=== PATIENT | female | born 1945 | race Caucasian/White ===

== ENCOUNTER 2022-09-26 10:40 | Inpatient (IN) | payer OTHER, MEDICAID ==
[~2022-09-26] VITALS: Ht 152.4 cm; Wt 59.4 kg
[2022-09-26 11:36] VITALS: BP_SYST 102; PULSE 69; RESP 16; TEMP 97.8; O2SAT 98
[2022-09-26] MEDS ORDERED: NACL 0.9% 1,000 ML IV ONE (11:45)
[2022-09-26 12:25] LABS: BASOPHILS % (AUTO) 0.4 % (0.0-2.0); EOSINOPHILS # (AUTO) 0.1 K/uL (0.0-0.4); EOSINOPHILS % (AUTO) 0.4 % (0.0-4.0); HEMOGLOBIN 12.2 g/dL (12.0-16.0); LYMPHOCYTES # (AUTO) 1.9 K/uL (1.0-5.5); LYMPHOCYTES % (AUTO) 13.9 % (20.5-51.5); MEAN CORPUSCULAR HEMOGLOBIN 29 pg (27-31); MEAN CORPUSCULAR HGB CONC 33 % (32-36); MEAN CORPUSCULAR VOLUME 87 fL (79.0-98.0); MONOCYTES % (AUTO) 7.4 % (1.7-9.3); NEUTROPHILS # (AUTO) 10.8 K/uL (1.8-7.7); NEUTROPHILS % (AUTO) 77.9 % (40.0-70.0); PLATELET COUNT (AUTO) 256 K/uL (130-430); RED BLOOD CELL COUNT(AUTO) 4.25 MIL/uL (4.2-6.2); RED CELL DISTRIBUTION WIDTH 13.3 % (9.0-15.0); WHITE BLOOD COUNT (AUTO) 13.8 K/uL (4.8-10.8)
[2022-09-26 12:28] LABS: ANION GAP 6 (5-15); CALCIUM 7.4 mg/dL (8.4-11.0); CHLORIDE 103 mmol/L (98-107); CREATININE 0.77 mg/dL (0.55-1.30); GLUCOSE 104 mg/dL (74-106); UREA NITROGEN, BLOOD 15 mg/dL (8-21)
[2022-09-26 12:41] LABS: ALANINE AMINOTRANSFERASE 17 U/L (12-78); ALBUMIN 2.6 g/dL (3.4-4.8); ASPARTATE AMINOTRANSFERASE 16 U/L (10-37); FREE T4 (FREE THYROXINE) 1.4 ng/dL (0.6-1.6); THYROID STIMULATING HORMONE 0.59 uIu/mL (0.34-4.82); TOTAL BILIRUBIN 0.8 mg/dL (0.0-1.0)
[2022-09-26 12:58] LABS: ACETONE, SERUM NEGATIVE (NEGATIVE)
[2022-09-26 13:10] LABS: BILIRUBIN,URINE NEGATIVE (NEGATIVE); BLOOD, URINE NEGATIVE (NEGATIVE); CLARITY/URINE SL CLOUDY (CLEAR); COLOR,URINE YELLOW (YELLOW); GLUCOSE,URINE NEGATIVE (NEGATIVE); KETONES,URINE TRACE (NEGATIVE); LEUKOCYTE ESTERASE ,URINE TRACE (NEGATIVE); NITRITE, URINE NEGATIVE (NEGATIVE); PROTEIN URINE NEGATIVE (NEGATIVE); UROBILINOGEN,URINE 0.2 (0.2-1.0)
[2022-09-26 14:43] LABS: BACTERIA,URINE RARE /HPF (None Seen); MUCUS,URINE None Seen /LPF (None Seen); RBC,URINE NONE SEEN /HPF (0-3); WBC,URINE 0-3 /HPF (0-3)
[2022-09-26] MEDS ORDERED: CETI10CA20 PO (15:53)
[2022-09-26] MEDS ORDERED: ALBMDI INH (15:53)
[2022-09-26] MEDS ORDERED: LORA10TA7 PO (15:53)
[2022-09-26] MEDS ORDERED: ONDA-8 TL (15:53)
[2022-09-26] MEDS ORDERED: CEPH250C PO (15:53)
[2022-09-26] MEDS ORDERED: MONT-40 PO (15:53)
[2022-09-26] MEDS ORDERED: AMLO5TAB4 PO (15:53)
[2022-09-26] MEDS ORDERED: ACETAMINOPHEN 325 MG TABLET PO PRN (16:30)
[2022-09-26] MEDS ORDERED: D5LR 500 ML IV SCH (16:30)
[2022-09-26] MEDS ORDERED: IPRATROPIUM/ALBUTEROL SULFATE 3 ML AMPUL.NEB (DUONEB) IH PRN (16:30)
[2022-09-26 16:35] VITALS: PULSE 70; O2SAT 98
[2022-09-26] MEDS: IPRATROPIUM/ALBUTEROL SULFATE 3 ML AMPUL.NEB (DUONEB) INH SCH (18:00)
[2022-09-26 21:44] LABS: INR 1.1 (0.8-1.2); PROTHROMBIN TIME 11.4 SECS (9.5-12.5)
[2022-09-26] MEDS ORDERED: PANTOPRAZOLE SODIUM 40 MG/VIAL (PROTONIX) IVP ONE (21:45)
[2022-09-26] MEDS: METHYLPREDNISOLONE SOD SUCC 40 MG/ML VIAL IVP SCH (22:27)
[2022-09-26] MEDS ORDERED: METHYLPREDNISOLONE SOD SUCC 40 MG/ML VIAL ONE (22:28)
[2022-09-26 22:36] VITALS: BP_SYST 117; PULSE 73; RESP 18; TEMP 98.8; O2SAT 98
[2022-09-26 22:54] LABS: LIPASE 160 U/L (73-393)
[2022-09-26] MEDS ORDERED: PIPERACILLIN/TAZOBACTAM 3.375 GM/VIAL (ZOSYN) IV ONE (22:59)
[2022-09-26] MEDS: PIPERACILLIN/TAZO 3.375 GM in NS 50 ML IV SCH (23:14)
[2022-09-26 23:53] VITALS: BP_SYST 111; PULSE 62; RESP 18; TEMP 98; O2SAT 98
[2022-09-27] VITALS (9 sets, daily range): BP systolic 99–122; PULSE 70–84; RESP 14–18; TEMP 96.8–98.8; O2SAT 92–99
[2022-09-27] MEDS: ENOXAPARIN SODIUM 60 MG/0.6 ML SYRINGE SUBCUT SCH ×2 (00:42→08:18)
[2022-09-27] MEDS ORDERED: ENOXAPARIN SODIUM 60 MG/0.6 ML SYRINGE ONE (00:43)
[2022-09-27] MEDS: IPRATROPIUM/ALBUTEROL SULFATE 3 ML AMPUL.NEB (DUONEB) INH SCH ×4 (01:39→18:00)
[2022-09-27] MEDS: PIPERACILLIN/TAZO 3.375 GM in NS 50 ML IV SCH ×4 (05:09→23:15)
[2022-09-27 06:02] LABS: BASOPHILS % (AUTO) 0.1 % (0.0-2.0); EOSINOPHILS % (AUTO) 0.2 % (0.0-4.0); HEMATOCRIT 35.1 % (36-48); HEMOGLOBIN 11.6 g/dL (12.0-16.0); LYMPHOCYTES # (AUTO) 0.5 K/uL (1.0-5.5); LYMPHOCYTES % (AUTO) 4.1 % (20.5-51.5); MEAN CORPUSCULAR HEMOGLOBIN 29 pg (27-31); MEAN CORPUSCULAR HGB CONC 33 % (32-36); MEAN CORPUSCULAR VOLUME 87 fL (79.0-98.0); MONOCYTES # (AUTO) 0.2 K/uL (0.0-1.0); MONOCYTES % (AUTO) 1.3 % (1.7-9.3); NEUTROPHILS # (AUTO) 11.6 K/uL (1.8-7.7); NEUTROPHILS % (AUTO) 94.3 % (40.0-70.0); PLATELET COUNT (AUTO) 244 K/uL (130-430); RED BLOOD CELL COUNT(AUTO) 4.06 MIL/uL (4.2-6.2); RED CELL DISTRIBUTION WIDTH 13.1 % (9.0-15.0); WHITE BLOOD COUNT (AUTO) 12.3 K/uL (4.8-10.8)
[2022-09-27 06:26] LABS: ANION GAP 8 (5-15); CALCIUM 7.9 mg/dL (8.4-11.0); CHLORIDE 104 mmol/L (98-107); GLUCOSE 170 mg/dL (74-106); UREA NITROGEN, BLOOD 12 mg/dL (8-21)
[2022-09-27] MEDS: PANTOPRAZOLE SODIUM 40 MG/VIAL (PROTONIX) IVP SCH ×2 (08:16→20:38)
[2022-09-27] MEDS: METHYLPREDNISOLONE SOD SUCC 40 MG/ML VIAL IVP SCH (08:17)
[2022-09-27] MEDS: AZITHROMYCIN 500 MG in NS 250 ML IV SCH (08:18)
[2022-09-27] MEDS ORDERED: amLODIPine BESYLATE 5 MG TABLET PO SCH (09:00)
[2022-09-27] MEDS ORDERED: iohexoL 350 mgI/mL, 100 ML INFUS..BTL IV ONE (10:55)
[2022-09-27] MEDS: MONTELUKAST 10 MG TABLET PO SCH (18:38)
[2022-09-27] MEDS: APIXABAN 2.5 MG TABLET PO SCH (20:39)
[2022-09-28] VITALS (9 sets, daily range): BP systolic 112–132; PULSE 59–82; RESP 17–20; TEMP 96.8–97.3; O2SAT 93–99
[2022-09-28] MEDS: IPRATROPIUM/ALBUTEROL SULFATE 3 ML AMPUL.NEB (DUONEB) INH SCH ×3 (01:30→13:50)
[2022-09-28] MEDS: PIPERACILLIN/TAZO 3.375 GM in NS 50 ML IV SCH ×4 (05:20→23:51)
[2022-09-28] MEDS: AZITHROMYCIN 500 MG in NS 250 ML IV SCH (08:25)
[2022-09-28] MEDS: PANTOPRAZOLE SODIUM 40 MG/VIAL (PROTONIX) IVP SCH (08:26)
[2022-09-28] MEDS: APIXABAN 2.5 MG TABLET PO SCH ×2 (08:27→20:42)
[2022-09-28 12:49] LABS: BASOPHILS % (AUTO) 0.2 % (0.0-2.0); HEMATOCRIT 33.8 % (36-48); HEMOGLOBIN 11.2 g/dL (12.0-16.0); LYMPHOCYTES # (AUTO) 1.3 K/uL (1.0-5.5); LYMPHOCYTES % (AUTO) 7.6 % (20.5-51.5); MEAN CORPUSCULAR HEMOGLOBIN 29 pg (27-31); MEAN CORPUSCULAR HGB CONC 33 % (32-36); MEAN CORPUSCULAR VOLUME 87 fL (79.0-98.0); MONOCYTES # (AUTO) 0.8 K/uL (0.0-1.0); MONOCYTES % (AUTO) 4.8 % (1.7-9.3); NEUTROPHILS # (AUTO) 15.1 K/uL (1.8-7.7); NEUTROPHILS % (AUTO) 87.4 % (40.0-70.0); PLATELET COUNT (AUTO) 277 K/uL (130-430); RED BLOOD CELL COUNT(AUTO) 3.89 MIL/uL (4.2-6.2); RED CELL DISTRIBUTION WIDTH 13.4 % (9.0-15.0); WHITE BLOOD COUNT (AUTO) 17.3 K/uL (4.8-10.8)
[2022-09-28 13:18] LABS: ALANINE AMINOTRANSFERASE 8 U/L (12-78); ANION GAP 10 (5-15); ASPARTATE AMINOTRANSFERASE 13 U/L (10-37); CALCIUM 7.9 mg/dL (8.4-11.0); CHLORIDE 106 mmol/L (98-107); CREATININE 0.81 mg/dL (0.55-1.30); GLUCOSE 134 mg/dL (74-106); LIPASE 215 U/L (73-393); TOTAL BILIRUBIN 0.3 mg/dL (0.0-1.0); UREA NITROGEN, BLOOD 17 mg/dL (8-21)
[2022-09-28] MEDS ORDERED: guaiFENesin/DEXTROMETHORPHAN 10 ML UDC PO PRN (14:00)
[2022-09-28] MEDS ORDERED: POTASSIUM CHLORIDE 20 MEQ TAB.PRT.SR PO ONE (14:00)
[2022-09-28 16:25] LABS: BASOPHILS % (AUTO) 0.2 % (0.0-2.0); HEMATOCRIT 33.8 % (36-48); HEMOGLOBIN 10.9 g/dL (12.0-16.0); LYMPHOCYTES # (AUTO) 1.8 K/uL (1.0-5.5); LYMPHOCYTES % (AUTO) 10.7 % (20.5-51.5); MEAN CORPUSCULAR HEMOGLOBIN 28 pg (27-31); MEAN CORPUSCULAR HGB CONC 32 % (32-36); MEAN CORPUSCULAR VOLUME 87 fL (79.0-98.0); MONOCYTES # (AUTO) 0.9 K/uL (0.0-1.0); MONOCYTES % (AUTO) 5.3 % (1.7-9.3); NEUTROPHILS # (AUTO) 13.8 K/uL (1.8-7.7); NEUTROPHILS % (AUTO) 83.8 % (40.0-70.0); PLATELET COUNT (AUTO) 278 K/uL (130-430); RED BLOOD CELL COUNT(AUTO) 3.86 MIL/uL (4.2-6.2); RED CELL DISTRIBUTION WIDTH 13.2 % (9.0-15.0); WHITE BLOOD COUNT (AUTO) 16.4 K/uL (4.8-10.8)
[2022-09-28] MEDS: MONTELUKAST 10 MG TABLET PO SCH (17:29)
[2022-09-28] MEDS: DOXYCYCLINE HYCLATE 100 MG CAPSULE PO SCH (20:42)
[2022-09-28] MEDS: PANTOPRAZOLE SODIUM 40 MG TAB PO SCH (20:42)
[2022-09-28] MEDS: MAGNESIUM OXIDE 400 MG TABLET PO SCH (20:42)
[2022-09-28] MEDS ORDERED: IPRATROPIUM/ALBUTEROL SULFATE 3 ML AMPUL.NEB (DUONEB) INH SCH (22:00)
[2022-09-28] MEDS ORDERED: IPRATROPIUM/ALBUTEROL SULFATE 3 ML AMPUL.NEB (DUONEB) INH PRN (23:00)
[2022-09-29] VITALS (8 sets, daily range): BP systolic 139–154; PULSE 63–84; RESP 14–18; TEMP 96.9–98.2; O2SAT 94–96
[2022-09-29 04:55] LABS: BASOPHILS % (AUTO) 0.1 % (0.0-2.0); EOSINOPHILS % (AUTO) 0.3 % (0.0-4.0); HEMATOCRIT 34.1 % (36-48); HEMOGLOBIN 11.5 g/dL (12.0-16.0); LYMPHOCYTES # (AUTO) 1.8 K/uL (1.0-5.5); LYMPHOCYTES % (AUTO) 16.7 % (20.5-51.5); MEAN CORPUSCULAR HEMOGLOBIN 30 pg (27-31); MEAN CORPUSCULAR HGB CONC 34 % (32-36); MEAN CORPUSCULAR VOLUME 88 fL (79.0-98.0); MONOCYTES # (AUTO) 0.7 K/uL (0.0-1.0); MONOCYTES % (AUTO) 6.8 % (1.7-9.3); NEUTROPHILS # (AUTO) 8.3 K/uL (1.8-7.7); NEUTROPHILS % (AUTO) 76.1 % (40.0-70.0); PLATELET COUNT (AUTO) 284 K/uL (130-430); RED CELL DISTRIBUTION WIDTH 13.5 % (9.0-15.0); WHITE BLOOD COUNT (AUTO) 10.9 K/uL (4.8-10.8)
[2022-09-29 05:13] LABS: ANION GAP 7 (5-15); CALCIUM 7.7 mg/dL (8.4-11.0); CHLORIDE 106 mmol/L (98-107); CREATININE 0.82 mg/dL (0.55-1.30); GLUCOSE 88 mg/dL (74-106); UREA NITROGEN, BLOOD 14 mg/dL (8-21)
[2022-09-29] MEDS: PIPERACILLIN/TAZO 3.375 GM in NS 50 ML IV SCH ×2 (06:08→11:48)
[2022-09-29] MEDS ORDERED: SACCHAROMYCES BOULARDII 250 MG CAPSULE (FLORASTOR) PO SCH (09:00)
[2022-09-29] MEDS ORDERED: LACTOBACILLUS RHAMNOSUS GG 1 CAP CAPSULE PO SCH (09:00)
[2022-09-29] MEDS: DOXYCYCLINE HYCLATE 100 MG CAPSULE PO SCH (09:25)
[2022-09-29] MEDS: MAGNESIUM OXIDE 400 MG TABLET PO SCH (09:26)
[2022-09-29] MEDS: APIXABAN 2.5 MG TABLET PO SCH (09:26)
[2022-09-29] MEDS: PANTOPRAZOLE SODIUM 40 MG TAB PO SCH (09:27)
[2022-09-29] MEDS ORDERED: AMLO2.5T2 PO (16:20)
[2022-09-29] MEDS ORDERED: APIX5TAB PO (16:23)
== END 2022-09-29 16:29 | disposition home health service (06) | DRG 193 ==
LOC: SED 10:40 → STU 16:25 → SMU 09-28 11:35
PROVIDERS: ADMIT Internal Medicine; ATTEND Internal Medicine
DX: J18.9 Pneumonia, unspecified organism (principal); J96.01 Acute respiratory failure with hypoxia; I82.411 Acute embolism and thrombosis of right femoral vein; J44.1 Chronic obstructive pulmonary disease with (acute) exacerbation; M48.56XA Collapsed vertebra, not elsewhere classified, lumbar region, initial encounter for fracture; J90 Pleural effusion, not elsewhere classified; J44.0 Chronic obstructive pulmonary disease with (acute) lower respiratory infection; Z20.822 Contact with and (suspected) exposure to COVID-19; E87.6 Hypokalemia; I10 Essential (primary) hypertension; Z63.4 Disappearance and death of family member; Z79.899 Other long term (current) drug therapy
CPT/HCPCS: 36415; 71045; 71275; 76376; 80048; 80053; 81000; 82009; 82306; 82550; 83605; 83690; 83735; 83880; 84439; 84443; 84484; 85025; 85379; 85610-TC; 85730-TC; 87040; 93005; 93306; 93970; 94640; 94760; 96361; 96365; 97116-GP; 97163-GP; 99285; C9113; G0378; J0456; J1030; J1650; J1956; J2543; J7030; J7050; Q9967

== ENCOUNTER 2022-10-03 11:07 | Emergency (ER) | payer OTHER, MEDICAID ==
[~2022-10-03 11:07] MED LIST: AMLO2.5T2 PO; APIX5TAB PO; MONT-40 PO
--- NOTE | 2022-10-03 11:50 | NUR ---
PT BIB SON, AWAKE AND ALERT AOX4, NO SOB. PT CAME IN BECAUSE SHE STATED SHE HAS BEEN HAVING BLACK STOOL FOR X3 DAYS. PT DENIES N/V/D, AND PAIN. PT IS ON ELIQUIS FOR A PREVIOUS DVT. PT HAS HX OF DVT, HTN, ASTHMA.
--- NOTE | 2022-10-03 11:51 | NUR ---
MD DR GAO AT BEDSIDE
[2022-10-03 12:06] VITALS: BP_SYST 123; PULSE 83; RESP 27; TEMP 97.2; O2SAT 94
[2022-10-03 12:20] LABS: BASOPHILS # (AUTO) 0.1 K/uL (0.0-0.2); BASOPHILS % (AUTO) 0.7 % (0.0-2.0); EOSINOPHILS # (AUTO) 0.2 K/uL (0.0-0.4); EOSINOPHILS % (AUTO) 2.9 % (0.0-4.0); HEMATOCRIT 38.4 % (36-48); HEMOGLOBIN 12.6 g/dL (12.0-16.0); LYMPHOCYTES # (AUTO) 2.1 K/uL (1.0-5.5); LYMPHOCYTES % (AUTO) 27.2 % (20.5-51.5); MEAN CORPUSCULAR HEMOGLOBIN 29 pg (27-31); MEAN CORPUSCULAR HGB CONC 33 % (32-36); MEAN CORPUSCULAR VOLUME 87 fL (79.0-98.0); MONOCYTES # (AUTO) 0.7 K/uL (0.0-1.0); MONOCYTES % (AUTO) 9.6 % (1.7-9.3); NEUTROPHILS # (AUTO) 4.5 K/uL (1.8-7.7); NEUTROPHILS % (AUTO) 59.6 % (40.0-70.0); PLATELET COUNT (AUTO) 388 K/uL (130-430); RED BLOOD CELL COUNT(AUTO) 4.41 MIL/uL (4.2-6.2); WHITE BLOOD COUNT (AUTO) 7.5 K/uL (4.8-10.8)
[2022-10-03 12:32] LABS: ANION GAP 9 (5-15); CALCIUM 8.2 mg/dL (8.4-11.0); CHLORIDE 107 mmol/L (98-107); CREATININE 0.85 mg/dL (0.55-1.30); GLUCOSE 121 mg/dL (74-106); UREA NITROGEN, BLOOD 16 mg/dL (8-21)
[2022-10-03 12:36] LABS: ALANINE AMINOTRANSFERASE 21 U/L (12-78); ALBUMIN 2.7 g/dL (3.4-4.8); AMYLASE 82 U/L (0-100); ASPARTATE AMINOTRANSFERASE 25 U/L (10-37); LIPASE 287 U/L (73-393); TOTAL BILIRUBIN 0.4 mg/dL (0.0-1.0)
[2022-10-03 12:37] LABS: INR 1.1 (0.8-1.2)
[2022-10-03 13:16] VITALS: BP_SYST 136; PULSE 74; RESP 18; TEMP 97.3; O2SAT 98
--- NOTE | 2022-10-03 13:17 | NUR ---
Patient given written and verbal discharge instructions and verbalizes understanding. ER MD DR GAO discussed with patient the results and treatment provided. Patient in stable condition. ID arm band removed. Patient educated on pain management and to follow up with PMD. Pain Scale 0/10. Opportunity for questions provided and answered. Medication side effect fact sheet provided.
== END 2022-10-03 13:17 | disposition home or self-care (01) ==
LOC: SED 11:07
DX: K62.5 Hemorrhage of anus and rectum (principal); Z79.899 Other long term (current) drug therapy
CPT/HCPCS: 36415; 74018; 80053; 82150; 83690; 85025; 85610-TC; 85730-TC; 99284